=== PATIENT | male | born 1990 | race Caucasian/White ===

== ENCOUNTER 2016-10-29 15:15 | Inpatient (IN) | payer MEDICAID ==
[2016-10-29] MEDS ORDERED: ONDANSETRON 4 MG/2 ML VIAL IVP ONE (16:32)
[2016-10-29] MEDS ORDERED: NS 1,000 ML IV ONE (16:32)
--- NOTE | 2016-10-29 16:36 | EDPHY ---
H & P Stated Complaint: The - Personal History Current Tetanus/Diphtheria Vaccine: Unsure - Medical/Surgical History Hx Asthma: No Hx Chronic Respiratory Disease: No Hx Diabetes: No Hx Cardiac Disease: No Hx Renal Disease: No Hx Cirrhosis: No Hx Alcoholism: No Hx HIV/AIDS: No Hx Splenectomy or Spleen Trauma: No Other PMH: DENIES - Social History Smoking Status: Never smoked Time Seen by Provider: 10/29/16 16:20 HPI/ROS: CHIEF COMPLAINT: Nausea vomiting abdominal pain x5 days HISTORY OF PRESENT ILLNESS: 25-year-old male generally healthy with no history of chronic abdominal pathology or abdominal surgeries complaining of 5 days of nausea, vomiting, myalgias, flu-like symptoms, fever, chills. Notice that his urine is an orange color. No abdominal pain. Drink heavier than usual alcohol for the 3 days preceding symptoms. No abdominal pain. No back or flank pain. No headache. No nuchal rigidity. No sore throat. No cough. Last oral intake was broth at noon today which subsequently elicited nausea. PRIMARY CARE PROVIDER: no primary care provider REVIEW OF SYSTEMS: A ten point review of systems was performed and is negative with the exception of the items mentioned in the HPI PAST MEDICAL & SURGICAL HISTORY: No pertinent medical or surgical history SOCIAL HISTORY: heavier than usual alcohol for 3 days preceding symptoms PHYSICAL EXAM (Prior to examination, patient consented to physical exam, hands were washed and my usual and customary physical exam procedures followed) 1) GENERAL: Well-developed, well-nourished, alert and oriented. Appears nontoxic 2) HEAD: Normocephalic, atraumatic 3) HEENT: Pupils equal, round, reactive to light bilaterally. Sclera anicteric. Nasopharynx, oropharynx, clear, no lesions. Dry mucous membranes. Anicteric. Ears bilaterally with normal tympanic membranes. 4) NECK: Full range of motion, no meningeal signs. 5) LUNGS: Clear auscultation bilaterally, no wheezes, no rhonchi, no retractions. 6) HEART: Regular rate and rhythm, no murmur, no heave, no gallop. 7) ABDOMEN: No guarding, , negative McBurney's, positive German's, negative Rovsing's, negative peritoneal sign, 8) MUSCULOSKELETAL: Moving all extremities, no focal areas of tenderness, no obvious trauma. No peripheral edema or discoloration. 9) BACK: No CVA tenderness, no midline vertebral tenderness, no fluctuance, no step-off, no obvious trauma, no visual or palpable abnormality. 10) SKIN: No rash, no petechiae. 11) Psychiatric: Patient is oriented X 3, there is no agitation. DIFFERENTIAL DIAGNOSIS: My differential diagnosis includes, but is not limited to, acute appendicitis, acute cholecystitis, bowel obstruction, acute pancreatitis, testicular torsion, gastritis and urinary tract infection. The patient understands that this diagnosis is provisional and can never be 100% accurate. This is a partial list of diagnoses considered. These considerations are based on history, physical exam, past history and reassessment. (Amol Mcguire) Constitutional: Initial Vital Signs Temperature (C) 36.9 C 10/29/16 15:27 Heart Rate 73 10/29/16 15:27 Respiratory Rate 20 10/29/16 15:27 Blood Pressure 132/76 H 10/29/16 15:27 O2 Sat (%) 97 10/29/16 15:27 O2 Delivery Mode Room Air Allergies/Adverse Reactions: No Known Allergies Allergy (Unverified 10/29/16 15:27) Home Medications: Medication Instructions Recorded NK [No Known Home Meds] 10/29/16 Medical Decision Making - Diagnostics Imaging: Imaging Impressions Abdomen Ultrasound 10/29/16 17:03 IMPRESSION: 1. Abnormal appearance of the gallbladder with wall thickening and a positive sonographic German sign. Differential considerations would include an acalculous cholecystitis, hepatitis, and/or hypoalbuminemia. If there is further clinical concern, a nuclear medicine hepatobiliary scan could be considered. There is no evidence of cholelithiasis or bile duct dilatation. 2. Borderline-hepatomegaly. Findings and recommendations were discussed with Gunnar Mcguire PA-C at 17:45 , on 10/29/2016. ED Course/Re-evaluation: 6:40 p.m.: Phone consultation with GI doctor Venessa recommends further evaluation including HIDA and/or CT imaging. . The patient remains symptomatic with continued complaints of nausea, unable to tolerate oral intake. 6:50 p.m.: Consultation with Dr. Khan at this time who recommends admission to hospitalist 6:54 p.m.: Phone consultation with Dr. Gardiner hospitalist who will admit patient for further evaluation (Amol Mcguire) Other Provider: 6:00 p.m. I evaluated the patient personally. He is well appearing. He is slightly dehydrated. Will treat with more IV fluids. His abdominal exam is completely benign. No right upper quadrant tenderness, negative German sign he is no longer vomiting. He states that he last vomited on Thursday but that he has continued to have fever until 24 hours ago when it resolved. Today he feels better but is still fatigue. (Bhaskar Yoon) - Data Points Laboratory Results: Laboratory Results 10/29/16 16:30 10/29/16 16:30 10/29/16 10/29/16 10/29/16 16:34 16:30 16:30 WBC 4.09 10^3/uL 10^3/uL (3.80-9.50) RBC 5.40 10^6/uL 10^6/uL (4.40-6.38) Hgb 17.0 g/dL g/dL (13.7-17.5) Hct 48.8 % % (40.0-51.0) MCV 90.4 fL fL (81.5-99.8) MCH 31.5 pg pg (27.9-34.1) MCHC 34.8 g/dL g/dL (32.4-36.7) RDW 11.9 % % (11.5-15.2) Plt Count 143 10^3/uL L 10^3/uL (150-400) MPV 10.6 fL fL (8.7-11.7) Neut % (Auto) 37.1 % L % (39.3-74.2) Lymph % (Auto) 33.7 % % (15.0-45.0) Mower % (Auto) 19.3 % H % (4.5-13.0) Eos % (Auto) 9.0 % H % (0.6-7.6) Baso % (Auto) 0.7 % % (0.3-1.7) Nucleat RBC Rel Count 0.0 % % (0.0-0.2) Absolute Neuts (auto) 1.51 10^3/uL L 10^3/uL (1.70-6.50) Absolute Lymphs (auto) 1.38 10^3/uL 10^3/uL (1.00-3.00) Absolute Monos (auto) 0.79 10^3/uL 10^3/uL (0.30-0.80) Absolute Eos (auto) 0.37 10^3/uL 10^3/uL (0.03-0.40) Absolute Basos (auto) 0.03 10^3/uL 10^3/uL (0.02-0.10) Absolute Nucleated RBC 0.00 10^3/uL 10^3/uL (0-0.01) Immature Gran % 0.2 % % (0.0-1.1) Seg Neutrophils % 32 % % Band Neutrophils % 16 % % Lymphocytes % 36 % % Monocytes % 10 % % Eosinophils % 6 % % Immature Gran # 0.01 10^3/uL 10^3/uL (0.00-0.10) Absolute Seg Neuts 1.31 10^/uL L 10^/uL (1.70-6.50) Absolute Band Neuts 0.65 10^3/uL 10^3/uL (0.00-0.70) Absolute Lymphocytes 1.47 10^3/uL 10^3/uL (1.00-3.00) Absolute Monocytes 0.41 10^3/uL 10^3/uL (0.30-0.80) Absolute Eosinophils 0.25 10^3/uL 10^3/uL (0.03-0.40) RBC/WBC/PLT Morphology NORMAL (NORMAL) Atypical Lymphocytes 2+ H Platelet Estimate DECREASED L (ADEQ) Smear Review By Pending Sodium 137 mEq/L mEq/L (134-144) Potassium 4.0 mEq/L mEq/L (3.5-5.2) Chloride 101 mEq/L mEq/L (97-110) Carbon Dioxide 22 mEq/l mEq/l (22-31) Anion Gap 14 mEq/L mEq/L (8-16) BUN 5 mg/dL L mg/dL (7-23) Creatinine 0.8 mg/dL mg/dL (0.7-1.3) Estimated GFR > 60 Glucose 85 mg/dL mg/dL (70-100) Calcium 9.4 mg/dL mg/dL (8.5-10.4) Total Bilirubin 5.1 mg/dL H mg/dL (0.1-1.4) Conjugated Bilirubin 4.4 mg/dL H mg/dL (0.0-0.5) Unconjugated Bilirubin 0.7 mg/dL mg/dL (0.0-1.1) AST 74 IU/L H IU/L (17-59) ALT 246 IU/L H IU/L (21-72) Alkaline Phosphatase 201 IU/L H IU/L (38-126) Creatine Kinase 50 IU/L IU/L (0-224) Total Protein 7.5 g/dL g/dL (6.3-8.2) Albumin 4.2 g/dL g/dL (3.5-5.0) Lipase 162.0 IU/L IU/L (23-300) Urine Color DEBO Urine Appearance CLEAR Urine pH 6.0 (5.0-7.5) Ur Specific [place] 1.006 (1.002-1.030) Urine Protein NEGATIVE (NEGATIVE) Urine Ketones TRACE H (NEGATIVE) Urine Blood NEGATIVE (NEGATIVE) Urine Nitrate NEGATIVE (NEGATIVE) Urine Bilirubin POSITIVE H (NEGATIVE) Urine Urobilinogen 2.0 EU H EU (0.2-1.0) Ur Leukocyte Esterase NEGATIVE (NEGATIVE) Urine RBC NONE SEEN /hpf /hpf (0-3) Urine WBC NONE SEEN /hpf /hpf (0-3) Ur Epithelial Cells TRACE /lpf /lpf (NONE-1+) Urine Glucose NEGATIVE (NEGATIVE) Medications Given: Discontinued Medications Sodium Chloride (Ns) 1,000 mls @ 0 mls/hr IV ONCE ONE PRN Reason: Wide Open Stop: 10/29/16 16:33 Last Admin: 10/29/16 16:36 Dose: 1,000 mls Ondansetron HCl (Zofran) 4 mg IVP EDNOW ONE Stop: 10/29/16 16:33 Last Admin: 10/29/16 16:56 Dose: Not Given Departure - Departure Disposition: [facility] Acute Clinical Impression: Conjugated hyperbilirubinemia Condition: Fair Referrals: NONE *PRIMARY CARE P,. [Primary Care Provider] - As per Instructions
[2016-10-29 16:43] LABS: % IMMATURE GRANULYOCYTES 0.2 % (0.0-1.1); ABSOLUTE IMMATURE GRANULOCYTES 0.01 10^3/uL (0.00-0.10); ADD DIFF? NO; ADD MORPH? NO; ADD SCAN? YES; FRAGMENT RBC FLAG 0 (0-99); HEMATOCRIT 48.8 % (40.0-51.0); LEFT SHIFT FLG 0 (0-99); LIPEMIA HEMOLYSIS FLAG 90 (0-99); MEAN CELL HEMOGLOBIN 31.5 pg (27.9-34.1); MEAN CELL HEMOGLOBIN CONCENTR. 34.8 g/dL (32.4-36.7); MEAN CELL VOLUME 90.4 fL (81.5-99.8); MEAN PLATELET VOLUME 10.6 fL (8.7-11.7); PLATELET CLUMPS FLAG 0 (0-99); PLATELET COUNT 143 10^3/uL (150-400); RED CELL DISTRIBUTION WIDTH 11.9 % (11.5-15.2)
[2016-10-29 16:55] LABS: ATYPICAL LYMPHOCYTE FLAG 180 (0-99)
[2016-10-29 16:59] LABS: ALANINE AMINOTRANSFERASE 246 IU/L (21-72); ALBUMIN 4.2 g/dL (3.5-5.0); ALKALINE PHOSPHATASE 201 IU/L (38-126); ANION GAP 14 mEq/L (8-16); ASPARTATE AMINOTRANSFERASE 74 IU/L (17-59); BILIRUBIN,TOTAL 5.1 mg/dL (0.1-1.4); BILIRUBIN-CONJUGATED 4.4 mg/dL (0.0-0.5); BILIRUBIN-UNCONJUGATED 0.7 mg/dL (0.0-1.1); CALCIUM 9.4 mg/dL (8.5-10.4); CARBON DIOXIDE 22 mEq/l (22-31); CHLORIDE 101 mEq/L (97-110); CREATININE 0.8 mg/dL (0.7-1.3); GLOMERULAR FILTRATION RATE > 60; GLUCOSE 85 mg/dL (70-100); SODIUM 137 mEq/L (134-144); TOTAL PROTEIN 7.5 g/dL (6.3-8.2)
[2016-10-29 17:01] LABS: COLOR AMBER; LEUKOCYTE ESTERASE,URINE NEGATIVE (NEGATIVE); NITRITE,URINE NEGATIVE (NEGATIVE)
[2016-10-29 17:02] LABS: RBC,URINE NONE SEEN /hpf (0-3); WBC,URINE NONE SEEN /hpf (0-3)
[2016-10-29 17:55] LABS: SCAN POSITIVE
[2016-10-29 17:58] LABS: PLATELET ESTIMATE DECREASED (ADEQ)
[2016-10-29] MEDS ORDERED: ACETAMINOPHEN 325 MG TAB PO PRN (18:55)
[2016-10-29] MEDS ORDERED: ONDANSETRON DISINTEGRATING 4 MG TAB PO PRN (18:55)
[2016-10-29] MEDS ORDERED: ONDANSETRON 4 MG/2 ML VIAL IVP PRN (18:55)
[2016-10-29] MEDS ORDERED: IOPAMIDOL (ISOVUE-300) 100 ML BTL IV ONE (18:59)
--- NOTE | 2016-10-29 20:38 | GHP ---
[f rep st] HISTORY AND PHYSICAL DATE OF ADMISSION: 10/29/2016 CHIEF COMPLAINT: Nausea, vomiting. HISTORY OF PRESENT ILLNESS: This is a 25-year-old man, otherwise healthy, who presents with nausea, vomiting. Symptoms started a few days ago. Associated with mild abdominal pain after eating, which he describes as indigestion. He notes that his urine had been darker-colored over the past few days. He has not had any jeremy-colored stools. He has not noticed any jaundice. He has taken about 2 Tylenol in the past 2 days. He does not drink any significant amount of alcohol. Notably, he took Kratom for about 2 weeks, and stopped about 2 weeks ago. He does not take any other medications. PAST MEDICAL/SURGICAL HISTORY: None. MEDICATIONS: None. FAMILY HISTORY: Parents are healthy. SOCIAL HISTORY: He drinks on the weekends. Does not smoke. REVIEW OF SYSTEMS: A 10-point review of systems is conducted and is negative except per HPI. PHYSICAL EXAM: VITAL SIGNS: Blood pressure 138/75, heart rate 61, respiration rate 16, satting 96% on room air, temperature is 36.5. GENERAL: The patient is a pleasant man, who is comfortable, in no acute distress. HEENT: Mild scleral icterus. CARDIOVASCULAR: Regular rate and rhythm. No murmurs, rubs, or gallops. PULMONARY: Lungs clear to auscultation bilaterally. ABDOMEN: Soft, mildly tender to palpation diffusely. There is no German sign. No palpable liver or gallbladder. SKIN: No rash or jaundice. : No Sandoval. NEUROLOGIC: Alert and oriented x3. He is moving all extremities. PSYCHIATRIC : Normal mood and affect. LABS: Platelets are 143. LFTs are notable for a total bilirubin of 5.1, 4.4 conjugated. AST 74, ALT 246. Alkaline phosphatase is 201. DATA: 1. I discussed this with Anirudh Mcguire. 2. I reviewed his abdominal CT. This shows mild hepatosplenomegaly, partially contracted gallbladder, with some apparent wall thickening enhancement, and trace pericholecystic fluid. No bile duct dilation. 3. Abdominal ultrasound showed abnormal gallbladder with possible acalculous cholecystitis, hepatitis. IMPRESSION AND PLAN: A 25-year-old man with cholestatic hepatitis. Cholestasis: Interestingly, he has been taking Kratom, which is known to cause a cholestatic hepatitis. I think this is the most likely cause at this point. Certainly, many other considerations including more common etiologies like acalculous cholecystitis. We will check HIDA scan in the morning. We will check viral serologies. At this point, I do not think he has primary biliary cirrhosis or primary sclerosing cholangitis, though these are considerations. Agree with GI and general surgery consult if needed. GI has already been called by the ED. I will also check an INR. This is a high-risk diagnosis. /[id number]/MODL MTDD
[2016-10-29 22:53] LABS: INR 1.12 (0.83-1.16); PROTIME(PATIENT) 14.3 SEC (12.0-15.0)
[2016-10-29] MEDS: TEMAZEPAM 15 MG CAP PO PRN (23:02)
[2016-10-30 05:11] LABS: % IMMATURE GRANULYOCYTES 0.2 % (0.0-1.1); ABSOLUTE IMMATURE GRANULOCYTES 0.01 10^3/uL (0.00-0.10); ADD DIFF? NO; ADD MORPH? NO; ADD SCAN? YES; FRAGMENT RBC FLAG 0 (0-99); HEMATOCRIT 41.9 % (40.0-51.0); HEMOGLOBIN 14.9 g/dL (13.7-17.5); LEFT SHIFT FLG 0 (0-99); LIPEMIA HEMOLYSIS FLAG 90 (0-99); MEAN CELL HEMOGLOBIN 31.9 pg (27.9-34.1); MEAN CELL HEMOGLOBIN CONCENTR. 35.6 g/dL (32.4-36.7); MEAN CELL VOLUME 89.7 fL (81.5-99.8); MEAN PLATELET VOLUME 10.6 fL (8.7-11.7); PLATELET CLUMPS FLAG 0 (0-99); PLATELET COUNT 124 10^3/uL (150-400); RED BLOOD CELL COUNT 4.67 10^6/uL (4.40-6.38); RED CELL DISTRIBUTION WIDTH 11.9 % (11.5-15.2)
[2016-10-30 05:17] LABS: ATYPICAL LYMPHOCYTE FLAG 110 (0-99)
[2016-10-30 05:23] LABS: INR 1.11 (0.83-1.16); PROTIME(PATIENT) 14.2 SEC (12.0-15.0)
[2016-10-30 05:48] LABS: ALANINE AMINOTRANSFERASE 208 IU/L (21-72); ALBUMIN 3.4 g/dL (3.5-5.0); ALKALINE PHOSPHATASE 153 IU/L (38-126); ANION GAP 10 mEq/L (8-16); ASPARTATE AMINOTRANSFERASE 91 IU/L (17-59); BILIRUBIN,TOTAL 4.8 mg/dL (0.1-1.4); CALCIUM 8.7 mg/dL (8.5-10.4); CARBON DIOXIDE 22 mEq/l (22-31); CHLORIDE 108 mEq/L (97-110); CREATININE 0.7 mg/dL (0.7-1.3); GLOMERULAR FILTRATION RATE > 60; GLUCOSE 89 mg/dL (70-100); POTASSIUM 4.6 mEq/L (3.5-5.2); SODIUM 140 mEq/L (134-144); TOTAL PROTEIN 6.1 g/dL (6.3-8.2)
[2016-10-30 05:55] LABS: BILIRUBIN-CONJUGATED 4.1 mg/dL (0.0-0.5); BILIRUBIN-UNCONJUGATED 0.7 mg/dL (0.0-1.1)
[2016-10-30 06:02] LABS: SCAN POSITIVE
[2016-10-30 06:07] LABS: PLATELET ESTIMATE DECREASED (ADEQ)
[2016-10-30 06:08] LABS: LARGE PLATELETS PRESENT; TOXIC GRANULATION PRESENT; TOXIC VACUOLIZATION PRESENT
--- NOTE | 2016-10-30 12:31 | HOSPPROG ---
Hospitalist Progress Note Assessment/Plan: 25 yo male, admitted with jaundice. Found to have possible GBD with pericholic fluid, elevated LFT's. Patient new to me today. -Abnormal LFT's with possible GBD. CT scan shows hepatomegaly without mass. HIDA is pending now. 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 Jaundice possibly 2/2 [place] whichi is reported to cause cholestatic jaundice, reversible -Plan: await HIDA results; dc if normal Subjective: c/o limited appetite but increasing; no nausea, vomiting, abdominal pain diarrhea Objective: Vital Signs Temp Pulse Resp BP Pulse Ox 37.0 C 63 18 128/76 H 96 10/30/16 07:39 10/30/16 07:39 10/30/16 07:39 10/30/16 07:39 10/30/16 07:39 Laboratory Results 10/30/16 04:52 10/30/16 04:52 10/29/16 10/30/16 10/31/16 05:59 05:59 05:59 Intake Total 1999 Balance 1999 PT 14.2 SEC (12.0-15.0) 10/30/16 04:52 INR 1.11 (0.83-1.16) 10/30/16 04:52 - Time Spent With Patient Time Spent with Patient: greater than 35 minutes Time Spent with Patient: Greater than 35 minutes spent on this patients care, greater than 50% of time spent counseling, educating, and coordinating care regarding the above mentioned plan. - Pending Discharge Pending Discharge Within 24 Hours: Yes Pending Discharge Date: 10/31/16 Pending Discharge Time: 11:00 - Physical Exam Constitutional: no apparent distress Eyes: PERRL, icteric sclera Ears, Nose, Mouth, Throat: moist mucous membranes, hearing normal Cardiovascular: regular rate and rhythym, no murmur, rub, or gallop Respiratory: no respiratory distress, no rales or rhonchi, clear to auscultation Gastrointestinal: normoactive bowel sounds, soft, non-tender abdomen Genitourinary: no bladder fullness Skin: warm Neurologic: AAOx3, CN II-XII Intact Psychiatric: interacting appropriately ICD10 Worksheet Patient Problems: Problems Problem Status Onset Conjugated hyperbilirubinemia Acute
[2016-10-30] MEDS: NS 1,000 ML IV SCH (20:45)
[2016-10-30] MEDS: TEMAZEPAM 15 MG CAP PO PRN (22:48)
[2016-10-31] MEDS: NS 1,000 ML IV SCH (06:54)
[2016-10-31 07:36] VITALS: BP 129/68; PULSE 55; RESP 14; TEMP 97.8; O2SAT 96
--- NOTE | 2016-10-31 14:27 | GDS ---
[f rep st] DISCHARGE SUMMARY NEW AND ACUTE DIAGNOSES: 1. Acute cholestatic jaundice secondary to the ingestion of an herbal supplement called kratom. 2. Abnormal ultrasound, but felt secondary to findings of cholestatic jaundice. CONSULTATIONS: None. PROCEDURES: 1. Abdominal CT showing gastroduodenitis and a normal appearance of the appendix. The spleen was s lightly enlarged, as was the liver, with the liver measuring 18 cm. The gallbladder appeared abnorm al and contracted with some wall thickening and enhancement. 2. HIDA scan showing findings were consistent with cholestatic jaundice. The liver enhanced, but t he biliary tree was never seen. 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 He had stopped his regular use of marijuana jaciel roximately 1 month CLINICAL TECHNOLOGIST and began using kratom intermittently. Three days CLINICAL TECHNOLOGIST, he noticed he was wea k and tired, and he was noted by friends to be jaundiced. He presented and was found to have elevat ed liver function tests and bilirubin, with a normal white count and normal hemoglobin. The conjuga anthony bilirubin was 4.1, AST 74, an ALT 246, with an elevated alkaline phosphatase of 201. Ultrasound revealed a small gallbladder with a thickened wall with a suggestion of pericolic fluid. CT scan c onfirmed this finding of an abnormal gallbladder. It also showed hepatomegaly and splenomegaly. HI DA scan showed enhancement in the liver without delineation of the biliary tree. This finding was f elt to be secondary to cholestatic jaundice. Review of the literature indicates that kratom has been known and reported to cause cholestatic mouna dice which is reversible. Aleman was afebrile with a normal white count and his right upper quadrant was nontender. Clinic ally, it is felt that he does not have acute cholecystitis, but has cholestatic jaundice with a cont racted gallbladder, and therefore findings are of a thickened wall of gallbladder due to the fact th at it is contracted. DISCHARGE MEDICATIONS: Marissa has been told to stop his use of kratom permanently. A prescripti on of Zofran 4 mg p.o. has been given, though he is eating at the time of discharge. PLAN: It is recommended that the gentleman follow up in approximately 1-2 weeks to have a recheck o f his liver functions. Referrals have been made for this. TIME SPENT: This discharge required 45 minutes, greater than 50% to budget counselor and coordinate care. I had a prolonged conversation with the patient and his girlfriend regarding his subsequent care and the reasons to avoid the use of kratom. /[id number]/MODL
== END 2016-10-31 14:03 | disposition home or self-care (01) | DRG 443 ==
LOC: INTOOBSV 18:52 → F3E 20:25 → OBSVTOIN 10-30 12:28
PROVIDERS: ADMIT Student in an Organized Health Care Education/Training Program; ATTEND Internal Medicine Pulmonary Disease
DX: R17 Unspecified jaundice (principal); K87 Disorders of gallbladder, biliary tract and pancreas in diseases classified elsewhere; R16.2 Hepatomegaly with splenomegaly, not elsewhere classified; R94.5 Abnormal results of liver function studies; T50.905A Adverse effect of unspecified drugs, medicaments and biological substances, initial encounter
CPT/HCPCS: A9537; G0378; G0472; Q9967